=== PATIENT | male | born 1990 | race Caucasian/White ===

== ENCOUNTER 2017-03-22 01:42 | Emergency (ER) | payer SELFPAY ==
[~2017-03-22] VITALS: Ht 167.6 cm; Wt 49.9 kg
[2017-03-22 01:42] VITALS: BP_SYST 137
--- NOTE | 2017-03-22 01:42 | NUR ---
Patient to ER bed 4 to gown for evaluation. Side rails up. Report given to LUIS FERNANDO MARSH.
--- NOTE | 2017-03-22 01:45 | NUR ---
Patient brought to ED by [facility] ambulatory with handcuffs for medical evaluation and clearance for booking. Patient denies pain. Has no other complaints at this time. at bedside. Will continue to monitor.
--- NOTE | 2017-03-22 01:50 | NUR ---
ED MD Goodmanek at bedside evaluating patient.
[2017-03-22] MEDS ORDERED: NACL 0.9% 1,000 ML IV SCH (01:55)
[2017-03-22 02:10] VITALS: BP_SYST 133
--- NOTE | 2017-03-22 02:10 | NUR ---
Patient given written and verbal discharge instructions and verbalizes understanding. ER MD discussed with patient the results and treatment provided. Patient in stable condition. ID arm band removed. No Rx given. Pain Scale 0/10 at this time. Opportunity for questions provided and answered. Patient discharged in [facility], ambulatory with handcuffs.
== END 2017-03-22 02:10 ==
LOC: SED 01:42
DX: Z02.89 Encounter for other administrative examinations (principal); L53.8 Other specified erythematous conditions; R03.0 Elevated blood-pressure reading, without diagnosis of hypertension; F17.200 Nicotine dependence, unspecified, uncomplicated
CPT/HCPCS: 99283